=== PATIENT | female | born 1980 | race American Indian/Alaskan Native ===

== ENCOUNTER 2023-01-01 17:10 | Emergency (ER) | payer SELFPAY ==
[~2023-01-01] VITALS: Ht 157.5 cm; Wt 102.1 kg
[2023-01-01 17:16] VITALS: BP 158/65; PULSE 96; RESP 16; TEMP 98; O2SAT 100
[2023-01-01 17:27] VITALS: BP 158/65; PULSE 96; RESP 16; TEMP 98; O2SAT 100
[2023-01-01] MEDS ORDERED: KETOROLAC 60 MG/2 ML VIAL IM ONE (18:00)
[2023-01-01] MEDS ORDERED: HYDROcodone/APAP 5/325 MG 1 TAB TAB PO ONE (18:00)
[2023-01-01] MEDS ORDERED: IBUP-2213 PO (19:18)
[2023-01-01] MEDS ORDERED: PRED20TA5 PO (19:19)
== END 2023-01-01 20:20 | disposition home or self-care (01) ==
LOC: MED 17:10
DX: M25.531 Pain in right wrist (principal); M79.631 Pain in right forearm; M25.431 Effusion, right wrist
CPT/HCPCS: 29125; 73090; 73110; 96372; 99284; J1885